=== PATIENT | male | born 1975 | race Caucasian/White ===

== ENCOUNTER 2017-05-21 18:07 | Emergency (ER) | payer SELFPAY ==
[2017-05-21 18:45] VITALS: BP 174/108
[2017-05-21 21:32] LABS: Bilirubin,Urine NEG (Negative); Blood,Urine NEG (Negative); Color,Urine Yellow (Yellow); Protein,Urine <15 mg/dL mg/dL (Negative); Urobilinogen,Urine < 2.0 mg/dL (<2.0); WBC,Urine < 1.0 /HPF (0.0-6.0)
[2017-05-21] MEDS ORDERED: MORPHINE IV ONE (22:26)
[2017-05-21] MEDS ORDERED: ZOFRAN IV ONE (22:26)
--- NOTE | 2017-05-21 22:31 | Emergency Department Report ---
ED Abdominal Pain HPI - General Chief Complaint: Back Pain/Injury Stated Complaint: BACK PAIN Time Seen by Provider: 05/21/17 22:08 Source: patient Mode of arrival: Ambulatory Limitations: No Limitations - History of Present Illness Initial Comments: Patient is a 42 years old male with a history of hypertension noncompliant with his medication patient stated that he was taking lisinopril. Patient presented to the ER complaining of back pain mainly right flank pain that radiated down to his groin area since yesterday. Patient stated that he noticed change in his urine color also. He reported a low-grade fever. Denied any nausea or vomiting. Patient denied any chest pain or other complaint. MD Complaint: abdominal pain, flank pain -: Last night Location: suprapubic, R flank Radiation: suprapubic Migration to: no migration Severity scale (0 -10): 8 Quality: stabbing, sharp Consistency: intermittent Associated Symptoms: denies other symptoms, hematuria - Related Data Allergies Allergy/AdvReac Type Severity Reaction Status Date / Time No Known Allergies Allergy Unverified 05/21/17 18:40 ED Review of Systems ROS: Stated complaint: BACK PAIN Other details as noted in HPI Comment: All other systems reviewed and negative Constitutional: fever. denies: chills Respiratory: denies: cough, orthopnea, shortness of breath, SOB with exertion, SOB at rest Cardiovascular: denies: chest pain, palpitations, dyspnea on exertion, orthopnea , edema, syncope, paroxysmal nocturnal dyspnea Gastrointestinal: abdominal pain. denies: nausea, vomiting, diarrhea, constipation, hematemesis, melena, hematochezia Genitourinary: hematuria. denies: urgency, dysuria, frequency, discharge, testicular pain, testicular mass Musculoskeletal: back pain. denies: joint swelling, arthralgia Neurological: denies: headache, weakness, numbness, paresthesias, confusion, abnormal gait ED Past Medical Hx - Social History Smoking Status: Current Every Day Smoker Substance Use Type: Alcohol, Marijuana ED Physical Exam - General Limitations: No Limitations General appearance: alert, in no apparent distress - Head Head exam: Present: atraumatic, normocephalic - Eye Eye exam: Present: normal appearance, PERRL - ENT ENT exam: Present: normal exam, normal orophraynx, mucous membranes moist - Neck Neck exam: Present: normal inspection, full ROM. Absent: tenderness, meningismus, lymphadenopathy, thyromegaly - Respiratory Respiratory exam: Present: normal lung sounds bilaterally. Absent: respiratory distress, wheezes, rales, rhonchi, stridor, chest wall tenderness, accessory muscle use, decreased breath sounds, prolonged expiratory - Cardiovascular Cardiovascular Exam: Present: regular rate, normal rhythm, normal heart sounds - GI/Abdominal GI/Abdominal exam: Present: soft, normal bowel sounds. Absent: distended, tenderness, guarding, rigid, organomegaly, mass, bruit, pulsatile mass, hernia - Extremities Exam Extremities exam: Present: normal inspection, full ROM, normal capillary refill - Back Exam Back exam: Present: normal inspection, full ROM, CVA tenderness (R). Absent: tenderness, CVA tenderness (L), muscle spasm, paraspinal tenderness, vertebral tenderness, rash noted - Neurological Exam Neurological exam: Present: alert, oriented X3, CN II-XII intact, normal gait - Skin Skin exam: Present: warm, intact, normal color ED Course Vital Signs 05/21/17 18:40 Temperature 99.8 F H Pulse Rate 96 H Respiratory 18 Rate Blood Pressure 174/108 O2 Sat by Pulse 97 Oximetry ED Medical Decision Making - Medical Decision Making Patient left the ER without telling anyone after I would examine him and I order medication and CT scan for him. Critical care attestation.: If time is entered above; I have spent that time in minutes in the direct care of this critically ill patient, excluding procedure time. ED Disposition Clinical Impression: Flank pain Disposition: ELOPED Is pt being admited?: No Condition: Stable
== END 2017-05-21 22:40 | disposition left against medical advice (07) ==
LOC: ED 18:07
DX: R10.31 Right lower quadrant pain (principal); M54.9 Dorsalgia, unspecified; R31.9 Hematuria, unspecified; F12.10 Cannabis abuse, uncomplicated; F17.200 Nicotine dependence, unspecified, uncomplicated
CPT/HCPCS: 81001; 99283